=== PATIENT | male | born 1985 | race Two or more races ===

== ENCOUNTER 2017-07-19 13:12 | Emergency (ER) | payer OTHER ==
[~2017-07-19] VITALS: Ht 170.2 cm; Wt 98.4 kg
== END 2017-07-19 21:37 | disposition home or self-care (01) ==
LOC: ER 13:12
DX: R10.31 Right lower quadrant pain (principal); K76.0 Fatty (change of) liver, not elsewhere classified

== ENCOUNTER → 2020-03-07 | Emergency (ER) | payer OTHER ==
[~2020-03-07] VITALS: Ht 175.3 cm; Wt 99.8 kg
== END | disposition designated cancer center or children's hospital (05) ==
LOC: ER 12:59
DX: N48.39 Other priapism (principal); Z20.828 Contact with and (suspected) exposure to other viral communicable diseases